=== PATIENT | female | born 1980 | race Caucasian/White ===

== ENCOUNTER → 2017-06-21 | Outpatient (CLI) | payer BC ==
--- NOTE | 2017-06-21 12:07 | MR ---
EXAMINATION TYPE: MR brain wo/w con DATE OF EXAM: 06/21/2017 COMPARISON: NONE HISTORY: Pseudopapilledema of optic disc TECHNIQUE: Multiplanar, multisequence images of the brain and brainstem is performed without and with IV contras t, utilizing 20 mL intravenous MultiHance . FINDINGS: There is no cerebellar tonsillar ectopia or downsloping of the right partially empty sella is seen an d fluid collection along the optic nerves are noted. There is no flattening of the sclera or tortuosi ty of the optic nerves. There is no bulging of the papilla into the globes. No enhancement of the pre liminary intra-articular optic nerves. Diffusion weighted images demonstrate no evidence of a recent infarct or other diffusion abnormality. There is no extra-axial fluid collection. Multiple foci of T2/FLAIR hyperintensity, which are nonen hancing, are seen within the subcortical white matter of the frontal lobes, parietal lobes, and left occipital lobe with the largest in the left frontal lobe measuring 9 mm x 4 mm. The ventricular syste m and cisternal spaces are normal in size and appearance. The brain volume is age appropriate. Midline structures demonstrate normal morphology. The craniocervical junction appears within normal limits. Post contrast images demonstrate no abnormal enhancement. The dural venous sinuses appear pa tent. The visualized sinuses are clear and the globes are intact. IMPRESSION: 1. Few nonspecific findings of potential increased intracranial pressure including fluid along the op tic nerves and partially empty sella turcica. No specific findings to suggest pseudotumor cerebri. 2. Multiple foci of T2/FLAIR hyperintensity in the subcortical white matter. Although these may be se en in microangiopathy, given the patient's age other etiologies such as demyelinating disease, vascul itides, and migraines should be considered.
== END | disposition home or self-care (01) ==
LOC: RADMRIMAIN 10:26
PROVIDERS: ATTEND Ophthalmology
DX: G93.2 Benign intracranial hypertension (principal); G43.909 Migraine, unspecified, not intractable, without status migrainosus; G37.9 Demyelinating disease of central nervous system, unspecified; I67.7 Cerebral arteritis, not elsewhere classified; H47.339 Pseudopapilledema of optic disc, unspecified eye
CPT/HCPCS: 70553; A9577

== ENCOUNTER → 2018-05-16 | Outpatient (CLI) | payer BC ==
--- NOTE | 2018-05-16 20:52 | CT ---
EXAMINATION TYPE: CT abdomen pelvis wo con DATE OF EXAM: 05/16/2018 HISTORY: Left flank pain. Kidney stones per order. CT DLP: 819 mGycm. Automated Exposure Control for Dose Reduction was Utilized. TECHNIQUE: CT scan of the abdomen and pelvis is performed without oral or IV contrast. COMPARISON: CT abdomen and pelvis September 10, 2016 and older studies FINDINGS: Within the limitations of a non-contrast study, the following observations are made. LUNG BASES: No significant abnormality is appreciated. LIVER/GB: Liver is markedly low dense consistent with fatty infiltration similar in appearance to dawood or. Cholecystectomy clips are redemonstrated. PANCREAS: No significant abnormality is seen. SPLEEN: There is 7 mm splenule anterior to spleen axial image 46 ADRENALS: No significant abnormality is seen. KIDNEYS: Suspect 1 to 2 mm calculus medially upper to midpole level right kidney coronal image 70 and axial image 58 not clearly seen on prior. There is stable 3 mm calculus upper pole level left kidney axial image 54. No hydronephrosis or obstructing renal calculi are seen bilaterally. No intraluminal calculi are seen in poorly distended bladder. BOWEL: Debris filled stomach suggests recent meal ingestion. There is no suspicious small or large shannon wel dilatation. Appendix is surgically absent. Small duodenal diverticulum along medial aspect second portion coronal image 50 is stable. GENITAL ORGANS: Anteverted slightly prominent uterus may reflect underlying fibroids unchanged from p rior LYMPH NODES: No greater than 1cm abdominal or pelvic lymph nodes are appreciated. OSSEOUS STRUCTURES: No significant abnormality is seen. OTHER: There is now soft tissue or scar tissue at level of prior small fat-containing umbilical herni a. IMPRESSION: 1. Stable 3 mm nonobstructing calculus upper pole of the left kidney. New single 1 to 2 mm calculus r ight kidney. No hydronephrosis or obstructing renal calculi are evident currently.
== END | disposition home or self-care (01) ==
LOC: RADCTMAIN 17:31
PROVIDERS: ATTEND Internal Medicine
DX: N20.0 Calculus of kidney (principal)
CPT/HCPCS: 74176

== ENCOUNTER → 2018-05-19 | Outpatient (CLI) | payer BC ==
--- NOTE | 2018-05-19 11:21 | XR ---
EXAMINATION TYPE: XR KUB DATE OF EXAM: 05/19/2018 10:52 AM CLINICAL HISTORY: History of left-sided nephrolithiasis. TECHNIQUE: Single supine KUB image of the abdomen is obtained. COMPARISON: CT abdomen pelvis dated 05/16/2018. FINDINGS: The previously seen 3 mm left renal calculus is not visualized, likely due to overlying bow el gas rather than interval passage. Punctate 1 to 2 mm right midpole renal calculus is present. Scat tered gas is seen in nondilated small bowel loops. Gas and fecal material is seen in nondilated colon . Cholecystectomy clips are noted. The lung bases are clear and the osseous structures are intact. Mi ld degenerative changes of the femoral acetabular joints are seen. IMPRESSION: 1. 3 mm left renal calculus is not visualized and favored. The obscured by overlying bowel gas rather than passed in the interim. 2. 1 to 2 mm right renal calculus is present overlying the renal shadow.
== END | disposition home or self-care (01) ==
LOC: RADXRMAIN 10:36
PROVIDERS: ATTEND Urology
DX: N20.0 Calculus of kidney (principal)
CPT/HCPCS: 74018

== ENCOUNTER → 2018-05-23 | Outpatient (CLI) | payer BC ==
[2018-05-23 09:49] LABS: HCT 41.6 % (34.0-46.0); MCH 29.6 pg (25.0-35.0); MCHC 33.7 g/dL (31.0-37.0); MCV 87.8 fL (80.0-100.0); Mean Platelet Volume 6.5; Platelet Count 269 k/uL (150-450); RBC 4.73 m/uL (3.80-5.40); RDW 13.7 % (11.5-15.5); WBC 6.4 k/uL (3.8-10.6)
[2018-05-23 10:01] LABS: ALT 131 U/L (9-52); AST 74 U/L (14-36); Albumin 4.4 g/dL (3.5-5.0); Alkaline Phosphatase 115 U/L (38-126); Anion Gap 8 mmol/L; Blood Urea Nitrogen 14 mg/dL (7-17); Calcium 9.7 mg/dL (8.4-10.2); Carbon Dioxide 24 mmol/L (22-30); Chloride 110 mmol/L (98-107); Cholesterol 218 mg/dL (<200); Glucose 144 mg/dL (74-99); HDL Cholesterol 34 mg/dL (40-60); LDL Cholesterol,Calculated 108 mg/dL (0-99); Potassium 4.3 mmol/L (3.5-5.1); Sodium 142 mmol/L (137-145); Total Bilirubin 0.3 mg/dL (0.2-1.3); Total Protein 7.3 g/dL (6.3-8.2); Triglycerides 381 mg/dL (<150)
[2018-05-23 10:17] LABS: T4, Free (Free Thyroxine) 1.07 ng/dL (0.78-2.19)
== END | disposition home or self-care (01) ==
LOC: LABWHC1 09:25
PROVIDERS: ATTEND Internal Medicine
DX: I10 Essential (primary) hypertension (principal)
CPT/HCPCS: 36415; 80053; 80061; 84439; 84443; 85027

== ENCOUNTER → 2018-09-12 | Outpatient (CLI) | payer BC ==
--- NOTE | 2018-09-12 09:05 | US ---
EXAMINATION TYPE: US abdomen complete DATE OF EXAM: 09/12/2018 COMPARISON: CT 09/10/2016, ultrasound 02/21/2015 CLINICAL HISTORY: K76.0 Fatty change of liver. EXAM MEASUREMENTS: Liver Length: 19.0 cm Gallbladder Wall: Surgically absent CBD: 0.6 cm Spleen: 11.6 cm Right Kidney: 10.2 x 4.7 x 6.4 cm Left Kidney: 10.9 x 6.6 cm Previous renal stones on CT are not identified currently. Pancreas: Tail obscured by overlying bowel gas Liver: Increased attenuation, decreased visualization of vessels suggestive of fatty infiltrate . L iver is enlarged. Gallbladder: Surgically absent Evidence for sonographic Starks's sign: no CBD: wnl Spleen: wnl Right Kidney: No hydronephrosis or masses seen Left Kidney: No hydronephrosis or masses seen Upper IVC: Obscured by overlying bowel gas Abd Aorta: Obscured by overlying bowel gas IMPRESSION: 1. Mild fatty infiltration of liver. 2. Hepatomegaly
== END | disposition home or self-care (01) ==
LOC: RADUSWWP 07:06
PROVIDERS: ATTEND Internal Medicine
DX: K76.0 Fatty (change of) liver, not elsewhere classified (principal)
CPT/HCPCS: 76700

== ENCOUNTER → 2018-10-29 | Outpatient (CLI) | payer BC ==
--- NOTE | 2018-10-30 14:49 | MM ---
Reason for exam: screening (asymptomatic). Last mammogram was performed 6 years and 8 months ago. Physical Findings: A clinical breast exam by your physician is recommended on an annual basis and results should be correlated with mammographic findings. MG 3D Screening Mammo W/Cad Bilateral CC and MLO view(s) were taken. Prior study comparison: February 28, 2012, CAD bilateral diagnostic mammogram. There are scattered fibroglandular densities. There is no discrete abnormality. No significant changes when compared with prior studies. ASSESSMENT: Negative, BI-RAD 1 RECOMMENDATION: Routine screening mammogram of both breasts in 1 year.
== END | disposition home or self-care (01) ==
LOC: RADMAMWWP 10:22
PROVIDERS: ATTEND Internal Medicine
DX: Z12.31 Encounter for screening mammogram for malignant neoplasm of breast (principal)
CPT/HCPCS: 77063; 77067

== ENCOUNTER → 2019-08-03 | Outpatient (CLI) | payer BC, OTHER ==
[2019-08-04 01:42] LABS: Iron Saturation 16.06 (12.00-45.00)
[2019-08-04 01:50] LABS: Ferritin 35.6 ng/mL (10.0-291.0)
[2019-08-04 02:09] LABS: Gliadin AB IgA, Deaminated NEGATIVE (NEGATIVE); Gliadin AB IgA, Unit <0.2 U/mL; Gliadin AB IgG, Deaminated NEGATIVE (NEGATIVE)
[2019-08-04 02:19] LABS: African American GFR (CKD) 132.1 (60.0-200.0); Albumin 4.5 g/dL (3.80-4.90); Albumin/Globulin Ratio 2.37 (1.60-3.17); Anion Gap 7.5 mmol/L (4.00-12.00); Calcium 9.7 mg/dL (8.7-10.3); Carbon Dioxide 31.5 mmol/L (21.6-31.8); Globulin 1.9 g/dL (1.6-3.3); Potassium 4.1 mmol/L (3.5-5.5); Total Bilirubin 0.3 mg/dL (0.3-1.2); Total Protein 6.4 g/dL (6.2-8.2)
[2019-08-04 03:28] LABS: Hepatitis A Antibody IgM Non-Reactive (Non-Reactive); Hepatitis B Core IgM Non-Reactive (Non-Reactive); Hepatitis B Surface Antigen Non-Reactive (Non-Reactive); Hepatitis C IgG Antibody Non-Reactive (Non-Reactive)
[2019-08-04 04:00] LABS: Protein, Total 6.4 g/dL (6.2-8.2)
[2019-08-04 10:49] LABS: Liver/Kidney Microsome Antibod 1.1 UNITS (<=20)
[2019-08-04 13:23] LABS: Albumin 3.86 g/dL (3.80-4.90); Gamma Globulin 0.77 g/dL (0.70-1.50)
[2019-08-04 14:42] LABS: ANA Pattern See Footnote; Ceruloplasmin 19.3 mg/dL (20.0-60.0)
== END | disposition home or self-care (01) ==
LOC: LABWHC1 16:30
PROVIDERS: ATTEND Internal Medicine
DX: R74.8 Abnormal levels of other serum enzymes (principal)
CPT/HCPCS: 36415; 80053; 80074; 82103; 82390; 82728; 83516; 83540; 83550; 84165; 86038; 86039; 86376

== ENCOUNTER → 2023-01-28 | Outpatient (CLI) | payer BC, OTHER ==
--- NOTE | 2023-01-28 10:31 | MM ---
Reason for Exam: Screening (asymptomatic). Last mammogram was performed 4 year(s) and 3 month(s) ago. Patient History: Menarche at age 9. First Full-Term at age 22. Risk Values: Nilda 5 year model risk: 0.8%. NCI Lifetime model risk: 9.5%. Prior Study Comparison: 02/28/2012 Bilateral Diagnostic Mammogram, [facility]. 10/29/2018 Bilateral Screening Mammogram, [facility]. Tissue Density: There are scattered fibroglandular densities. Findings: Analyzed By CAD. There is no suspicious group of microcalcifications or new suspicious mass in either breast. Overall Assessment: Negative, BI-RAD 1 Management: Screening Mammogram of both breasts in 1 year. A clinical breast exam by your physician is recommended on an annual basis and results should be correlated with mammographic findings. Electronically signed and approved by: Husam Sellers M.D.
== END | disposition home or self-care (01) ==
LOC: RADMAMWWP 09:23
PROVIDERS: ATTEND Internal Medicine
DX: Z12.31 Encounter for screening mammogram for malignant neoplasm of breast (principal)
CPT/HCPCS: 77063; 77067

== ENCOUNTER 2023-02-10 18:30 | Emergency (ER) | payer BC, OTHER ==
[2023-02-10] MEDS ORDERED: SODIUM CHLORIDE 0.9% 1,000 ML IV STA (18:37)
[2023-02-10] MEDS ORDERED: ONDANSETRON 4 MG/2 ML VIAL IVP STA (18:48)
[2023-02-10] MEDS ORDERED: KETOROLAC 15 MG/ML 1 ML VIAL IVP STA (18:49)
[2023-02-10 19:10] LABS: Basophils # (A) 0.1 k/uL (0-0.2); Basophils % (A) 1 %; Eosinophils # (A) 0.1 k/uL (0-0.7); Eosinophils % (A) 1 %; HCT 45.9 % (34.0-46.0); HGB 15.7 gm/dL (11.4-16.0); Lymphocytes # (A) 3.4 k/uL (1.0-4.8); Lymphocytes % (A) 28 %; MCH 29.2 pg (25.0-35.0); MCHC 34.2 g/dL (31.0-37.0); MCV 85.4 fL (80.0-100.0); Mean Platelet Volume 7.1; Monocytes # (A) 0.6 k/uL (0-1.0); Monocytes % (A) 5 %; Neutrophils # (A) 7.9 k/uL (1.3-7.7); Neutrophils % (A) 65 %; Platelet Count 261 k/uL (150-450); RBC 5.38 m/uL (3.80-5.40); RDW 13.7 % (11.5-15.5); WBC 12.2 k/uL (3.8-10.6)
[2023-02-10 19:34] LABS: Partial Thromboplastin Time 22.3 sec (22.0-30.0); Prothrombin Time 10.9 sec (9.0-12.0)
[2023-02-10 19:52] LABS: ALT 106 U/L (4-34); AST 56 U/L (14-36); African American GFR (CKD) >90 (>60 ml/min/1.73 sqM); Albumin 4.9 g/dL (3.5-5.0); Alkaline Phosphatase 95 U/L (38-126); Anion Gap 12 mmol/L; Blood Urea Nitrogen 19 mg/dL (7-17); Calcium 10.3 mg/dL (8.4-10.2); Carbon Dioxide 32 mmol/L (22-30); Chloride 98 mmol/L (98-107); Glucose 113 mg/dL (74-99); Non-African American GFR(CKD) >90 (>60 ml/min/1.73 sqM); Potassium 4.4 mmol/L (3.5-5.1); Sodium 142 mmol/L (137-145); Total Bilirubin 0.5 mg/dL (0.2-1.3); Total Protein 7.9 g/dL (6.3-8.2)
--- NOTE | 2023-02-10 20:00 | CT ---
EXAMINATION TYPE: CT angio abdomen pelvis CT DLP: 2285.6 mGycm, Automated exposure control for dose reduction was used. DATE OF EXAM: 02/10/2023 7:38 PM COMPARISON: 05/16/2018 CLINICAL INDICATION:Female, 42 years old with history of abd pain rectal bleeding, hx of ischemic col itis;, GI bleeding, Hx ischemic bowel. TECHNIQUE: Multiple thin slice sub-millimeter images were obtained through the abdomen and pelvis, af ter administration of contrast. CT Contrast: Contrast used:100 mL of Isovue 370 with IV Contrast, Oral contrast used: without Oral Contrast None FINDINGS: CTA Abdomen and pelvis: The abdominal aorta does not demonstrate aneurysmal dilatation. The origins of the superior mesenteric artery, renal arteries, inferior mesenteric artery, and celiac axis are pa tent. The iliac vessels are normal in morphology LOWER CHEST: No evidence of focal consolidation, pneumothorax or pleural effusion. The heart is mildl y enlarged for size. LIVER: Diffusely hypoattenuating parenchyma. GALLBLADDER AND BILE DUCTS: The gallbladder is surgically absent. PANCREAS: Unremarkable. SPLEEN: Small splenule is present. ADRENAL GLANDS: Unremarkable. KIDNEYS AND URETERS: Nonobstructing bilateral renal millimeter renal calculi. No evidence of obstruct brad uropathy. The ureters are grossly unremarkable. PELVIS BLADDER: Unremarkable REPRODUCTIVE: Hypodense left labia probable cyst measuring 8 mm. ABDOMEN & PELVIS STOMACH AND BOWEL: No evidence of bowel obstruction. No evidence for bowel wall thickening or pneumat osis. No organizing fluid collection identified. Mild inflammation changes suggested along the left a bdomen along the descending colon. Second portion duodenal diverticulum with foci of gas present. PERITONEUM: No evidence of pneumoperitoneum or free fluid. MUSCULOSKELETAL: No acute osseous abnormalities LYMPH NODES: No gross evidence for lymphadenopathy. SOFT TISSUE/ABDOMINAL WALL: Unremarkable IMPRESSION 1. Mild inflammation changes along the descending colon without definite evidence for gastrointestin al hemorrhage. 2. No evidence for pneumatosis or evidence for bowel obstruction. No free air or organizing fluid co llection within the abdomen or pelvis. 3. No evidence of vascular occlusion. 4. Hepatic steatosis. 5. Bilateral nonobstructing renal calculi measuring 3 mm.
[2023-02-10] MEDS ORDERED: AMOXIC-POT CLAV 875-125MG 1 EACH TAB PO STA (20:25)
[2023-02-10] MEDS ORDERED: METOCLOPRAMIDE 5 MG/ML 2 ML VIAL IVP STA (20:28)
[2023-02-10] MEDS ORDERED: MORPHINE SULFATE 4 MG/ML SYRINGE IVP STA (20:31)
[2023-02-10] MEDS ORDERED: ONDANSETRON 4 MG ODT STARTER PACK 2 TAB BTL PO STA (20:31)
[2023-02-10 20:41] VITALS: BP 149/82; PULSE 89; RESP 18; TEMP 98.1
--- NOTE | 2023-02-10 21:46 | ED ---
GI Bleed HPI - General Chief complaint: GI Bleed Stated complaint: poss GI bleed Time Seen by Provider: 02/10/23 18:37 Source: patient Mode of arrival: ambulatory Limitations: no limitations - History of Present Illness Initial comments: Patient is a 42 year old female who presents to the emergency department for GI bleed. Patient reports lower abdominal pain that started today, left more than right. Tonight she had 1 episode of bloody stool. She did show me a picture revealing diarrhea with bright red blood and a few dime sized clots. She does not take blood thinners. Patient has history of GI bleed secondary to ischemic colitis which she states was due to a diet medication. Patient no longer takes it but started Ozempic January 02. She reports nausea without vomiting. No fever, chills, back pain, burning with urination, blood in urine. No chest pain or SOB. - Related Data Home Medications Medication Instructions Recorded Confirmed Lisinopril/Hydrochlorothiazide 1 tab PO DAILY 09/10/16 02/10/23 [Lisinopril-Hctz 10-12.5 mg Tab] Omeprazole [PriLOSEC] 20 mg PO DAILY 09/10/16 02/10/23 Cyanocobalamin [Vitamin B-12] 500 mcg PO DAILY 02/10/23 02/10/23 Ivabradine HCl [Corlanor] 5 mg PO BID 02/10/23 02/10/23 Rosuvastatin Calcium 5 mg PO HS 02/10/23 02/10/23 Semaglutide [Ozempic] 0.25 mg SQ WE 02/10/23 02/10/23 metFORMIN HCL [Glucophage] 1,000 mg PO BID 02/10/23 02/10/23 Previous Rx's Medication Instructions Recorded Amoxic-Pot Clav 875-125Mg 1 tab PO BID 10 Days #20 tab 02/10/23 [Augmentin 875-125] Ibuprofen [Motrin] 800 mg PO Q8HR PRN #30 tab 02/10/23 Ondansetron Odt [Zofran Odt] 4 mg PO Q8HR PRN #10 tab 02/10/23 Allergies Allergy/AdvReac Type Severity Reaction Status Date / Time codeine AdvReac Vomiting Verified 02/10/23 19:50 Review of Systems ROS Statement: Those systems with pertinent positive or pertinent negative responses have been documented in the HPI. ROS Other: All systems not noted in ROS Statement are negative. Past Medical History Past Medical History: Hypertension Additional Past Medical History / Comment(s): kidney stones, ischemic bowel History of Any Multi-Drug Resistant Organisms: None Reported Past Surgical History: Appendectomy, Section, Cholecystectomy, Uterine Ablation Additional Past Surgical History / Comment(s): COLONOSCOPY W/ BX-NEG FOR CA, X3 C-SECTIONS, LITHOTTRIPSY Past Anesthesia/Blood Transfusion Reactions: No Reported Reaction Past Psychological History: No Psychological Hx Reported Past Alcohol Use History: None Reported Past Drug Use History: None Reported - Past Family History Father Family Medical History: CVA/TIA, Hypertension Additional Family Medical History / Comment(s): DEPRESSION, KIDNEY STONES Mother Family Medical History: Diabetes Mellitus, Hypertension General Exam Limitations: no limitations General appearance: alert, in no apparent distress Head exam: Present: atraumatic, normocephalic, normal inspection Eye exam: Present: normal appearance, PERRL, EOMI. Absent: scleral icterus, conjunctival injection, periorbital swelling Respiratory exam: Present: normal lung sounds bilaterally. Absent: respiratory distress, wheezes, rales, rhonchi, stridor Cardiovascular Exam: Present: regular rate, normal rhythm, normal heart sounds. Absent: systolic murmur, diastolic murmur, rubs, gallop, clicks GI/Abdominal exam: Present: soft, normal bowel sounds. Absent: distended, tenderness, guarding, rebound, rigid Rectal exam: Present: normal inspection, other (no active bleeding). Absent: b lack stool Course Vital Signs 02/10/23 02/10/23 18:31 20:40 Temperature 97.9 F 98.1 F Pulse Rate 114 H 89 Respiratory 16 18 Rate Blood Pressure 177/109 149/82 O2 Sat by Pulse 98 96 Oximetry Medical Decision Making - Medical Decision Making Was pt. sent in by a medical professional or institution (, PA, RACK PRODUCTION WORKER, urgent care, hospital, or fpc...) When possible be specific @ -[No] Did you speak to anyone other than the patient for history (EMS, parent, family, police, friend...)? What history was obtained from this source @ -[No] Did you review nursing and triage notes (agree or disagree)? Why? @ -[I reviewed and agree with nursing and triage notes] Were old charts reviewed (outside hosp., previous admission, EMS record, old EKG, old radiological studies, urgent care reports/EKG's, fpc records)? Report findings @ -[No old charts were reviewed] Differential Diagnosis (chest pain, altered mental status, abdominal pain women, abdominal pain men, vaginal bleeding, weakness, fever, dyspnea, syncope, headache, dizziness, GI bleed, back pain, seizure, CVA, palpatations, mental health)? @ -Differential Abdominal Pain Women: Appendicitis, Cholecystitis, diverticulosis, ischemic bowel, pancreatitis, hepatitis, UTI, gastroenteritis, AAA, incarcerated hernia, bowel obstruction, constipation, inflammatory bowel, hepatitis, peptic ulcer disease, splenic infarction, perforated viscus, vulvitis, ovarian torsion, PID, kidney stone, placenta abruption, this is not meant to be an all-inclusive list EKG interpreted by me (3pts min.). @ -[As above] X-rays interpreted by me (1pt min.). @ -[None done] CT interpreted by me (1pt min.). @ -[None done] U/S interpreted by me (1pt. min.). @ -[None done] What testing was considered but not performed or refused? (CT, X-rays, U/S, labs)? Why? @ -[None] What meds were considered but not given or refused? Why? @ -[None] Did you discuss the management of the patient with other professionals (professionals i.e. , PA, RACK PRODUCTION WORKER, lab, RT, psych nurse, social insurance administrator, test center administrator, teacher, freedom of information officer, case technician)? Give summary @ -[No] Was smoking cessation discussed for >3mins.? @ -[No] Was critical care preformed (if so, how long)? @ -[No] Were there social determinants of health that impacted care today? How? (Homelessness, low income, unemployed, alcoholism, drug addiction, transportation, low edu. Level, literacy, decrease access to med. care, longterm, rehab)? @ -[No] Was there de-escalation of care discussed even if they declined (Discuss DNR or withdrawal of care, Hospice)? DNR status @ -[No] What co-morbidities impacted this encounter? (DM, HTN, Smoking, COPD, CAD, Cancer, CVA, ARF, Chemo, Hep., AIDS, mental health diagnosis, sleep apnea, morbid obesity)? @ -[None] Was patient admitted / discharged? Hospital course, mention meds given and route, prescriptions, significant lab abnormalities, going to OR and other pertinent info. @ -Patient presenting with abdominal pain and hematochezia, No fever, no vomiting. No active bleeding visualized on exam. Laboratory studies obtained. Hemoglobin is normal. There is mild leukocytosis at 12.2. Lactic is elevated at 2.7. CT angio abdomen obtained which shows mild colitis of the descending colon without definite evidence for gastrointestinal hemorrage. There is no evidence of va scular occlusion. Patient given large fluid bolus, pain and nausea medication. She did not have an y further episodes of bloody stool. Results discussed with patient. She reports normal colonoscopy 5 years ago. We discussed the possibility of inflammatory vs. infectious etiology. Patient will be treated with Augmentin. She will follow up with her GI specialists. Strict return parameters discussed. Undiagnosed new problem with uncertain prognosis? @ -[No] Drug Therapy requiring intensive monitoring for toxicity (Heparin, Nitro, Insulin, Cardizem)? @ -[No] Were any procedures done? @ -[No] Diagnosis/symptom? @ -colitis Acute, or Chronic, or Acute on Chronic? @ -acute Uncomplicated (without systemic symptoms) or Complicated (systemic symptoms)? @ -uncomplicated Side effects of treatment? @ -[No] Exacerbation, Progression, or Severe Exacerbation? @ -[No] Poses a threat to life or bodily function? How? (Chest pain, USA, MT, pneumonia, PE, COPD, DKA, ARF, appy, cholecystitis, CVA, Diverticulitis, Homicidal, Suicidal, threat to staff... and all critical care pts) @ -[No] Dr. Coffman is my attending - Lab Data Result diagrams: 02/10/23 18:40 02/10/23 18:51 Lab Results 02/10/23 02/10/23 02/10/23 Range/Units 18:40 18:51 18:51 WBC 12.2 H (3.8-10.6) k/uL RBC 5.38 (3.80-5.40) m/uL Hgb 15.7 (11.4-16.0) gm/dL Hct 45.9 (34.0-46.0) % MCV 85.4 (80.0-100.0) fL MCH 29.2 (25.0-35.0) pg MCHC 34.2 (31.0-37.0) g/dL RDW 13.7 (11.5-15.5) % Plt Count 261 (150-450) k/uL MPV 7.1 Neutrophils % 65 % Lymphocytes % 28 % Monocytes % 5 % Eosinophils % 1 % Basophils % 1 % Neutrophils # 7.9 H (1.3-7.7) k/uL Lymphocytes # 3.4 (1.0-4.8) k/uL Monocytes # 0.6 (0-1.0) k/uL Eosinophils # 0.1 (0-0.7) k/uL Basophils # 0.1 (0-0.2) k/uL PT 10.9 (9.0-12.0) sec INR 1.0 (<1.2) APTT 22.3 (22.0-30.0) sec Sodium 142 (137-145) mmol/L Potassium 4.4 (3.5-5.1) mmol/L Chloride 98 (98-107) mmol/L Carbon Dioxide 32 H (22-30) mmol/L Anion Gap 12 mmol/L BUN 19 H (7-17) mg/dL Creatinine 0.78 (0.52-1.04) mg/dL Est GFR (CKD-EPI)AfAm >90 (>60 ml/min/1.73 sqM) Est GFR (CKD-EPI)NonAf >90 (>60 ml/min/1.73 sqM) Glucose 113 H (74-99) mg/dL Plasma Lactic Acid David (0.7-2.0) mmol/L Calcium 10.3 H (8.4-10.2) mg/dL Total Bilirubin 0.5 (0.2-1.3) mg/dL AST 56 H (14-36) U/L ALT 106 H (4-34) U/L Alkaline Phosphatase 95 (38-126) U/L Total Protein 7.9 (6.3-8.2) g/dL Albumin 4.9 (3.5-5.0) g/dL Blood Type Blood Type Recheck Bld Type Recheck Status Antibody Screen Spec Expiration Date 02/10/23 02/10/23 Range/Units 18:51 18:52 WBC (3.8-10.6) k/uL RBC (3.80-5.40) m/uL Hgb (11.4-16.0) gm/dL Hct (34.0-46.0) % MCV (80.0-100.0) fL MCH (25.0-35.0) pg MCHC (31.0-37.0) g/dL RDW (11.5-15.5) % Plt Count (150-450) k/uL MPV Neutrophils % % Lymphocytes % % Monocytes % % Eosinophils % % Basophils % % Neutrophils # (1.3-7.7) k/uL Lymphocytes # (1.0-4.8) k/uL Monocytes # (0-1.0) k/uL Eosinophils # (0-0.7) k/uL Basophils # (0-0.2) k/uL PT (9.0-12.0) sec INR (<1.2) APTT (22.0-30.0) sec Sodium (137-145) mmol/L Potassium (3.5-5.1) mmol/L Chloride (98-107) mmol/L Carbon Dioxide (22-30) mmol/L Anion Gap mmol/L BUN (7-17) mg/dL Creatinine (0.52-1.04) mg/dL Est GFR (CKD-EPI)AfAm (>60 ml/min/1.73 sqM) Est GFR (CKD-EPI)NonAf (>60 ml/min/1.73 sqM) Glucose (74-99) mg/dL Plasma Lactic Acid David 2.7 H* (0.7-2.0) mmol/L Calcium (8.4-10.2) mg/dL Total Bilirubin (0.2-1.3) mg/dL AST (14-36) U/L ALT (4-34) U/L Alkaline Phosphatase (38-126) U/L Total Protein (6.3-8.2) g/dL Albumin (3.5-5.0) g/dL Blood Type O Positive Blood Type Recheck O Pos Bld Type Recheck Status No Antibody Screen NEGATIVE Spec Expiration Date 02/13/2023 - 2350 Disposition Clinical Impression: GI bleed, Colitis Disposition: HOME SELF-CARE Condition: Good Instructions (If sedation given, give patient instructions): Gastrointestinal Bleeding (ED), Colitis (ED) Additional Instructions: Take medication as directed. Follow up with GI specialist in 1-2 days. Return to the ED if you experience new, worsening, or concerning symptoms Prescriptions: Amoxic-Pot Clav 875-125Mg [Augmentin 875-125] 1 tab PO BID 10 Days #20 tab Ibuprofen [Motrin] 800 mg PO Q8HR PRN #30 tab PRN Reason: Pain Ondansetron Odt [Zofran Odt] 4 mg PO Q8HR PRN #10 tab PRN Reason: Nausea Is patient prescribed a controlled substance at d/c from ED?: No Referrals: Lexy Julian MD [Primary Care Provider] - 1-2 days
== END 2023-02-10 20:54 | disposition home or self-care (01) ==
LOC: EC 18:30
DX: K92.2 Gastrointestinal hemorrhage, unspecified (principal); K52.9 Noninfective gastroenteritis and colitis, unspecified; I10 Essential (primary) hypertension; Z88.8 Allergy status to other drugs, medicaments and biological substances; Z79.899 Other long term (current) drug therapy
CPT/HCPCS: 36415; 86900; 86901; 80053; 83605; 85025; 85610; 85730; 86850; 74174; 99285; 96374; 96375 ×3; 96361; J2270; J2765; J2405; J1885; S0119; Q9967

== ENCOUNTER 2023-04-23 05:52 | Day surgery (SDC) | payer BC, OTHER ==
[~2023-04-23 05:52] MED LIST: LACTATED RINGERS 1,000 ML IV SCH
[2023-04-23 06:33] VITALS: RESP 16; TEMP 97.8
[2023-04-23 06:43] LABS: Glucose,Whole Blood 97 mg/dL (70-110)
[2023-04-23] MEDS ORDERED: LIDOCAINE 2% INJ 20 MG/ML (2 ML VIAL) ONE (07:04)
[2023-04-23] MEDS ORDERED: PROPOFOL 10 MG/ML 20 ML VIAL IV ONE (07:04)
--- NOTE | 2023-04-23 07:28 | P.PCN ---
Date of Procedure: 04/23/23 Procedure(s) Performed: Brief history: Patient is a pleasant 41-year-old white female scheduled for an elective upper endoscopy as well as colonoscopy as a part of evaluation of long-standing history of GERD and recent episode of acute colitis 2 months ago at which time she had abdominal pain and bloody diarrhea lasting for 1 day. She went to the ER and had a computed tomography scan done that showed thickening of the left colon. She was discharged home on antibiotics and her symptoms resolved in 2 da ys. She had similar episode 7 years ago and was diagnosed with ischemic colitis. Her last colonoscopy was 6 months ago Procedure performed: Esophagogastroduodenoscopy with biopsy Colonoscopy Preoperative diagnosis: GERD Recent episode of acute colitis Anesthesia: MAC Procedure: After informed consent was obtained from the patient was brought into the endoscopy unit and IV sedation was administered by anesthesia under continuous monitoring. Initially upper endoscopy was done. The Olympus GF 160 video endoscope was inserted inserted into the mouth and esophagus intubated without any difficulty and was gradually advanced into the stomach and duodenum and carefully examined. The bulb and second part of the duodenum appeared normal. The scope was then withdrawn into the stomach adequately insufflated with air and upon careful examination the antrum and mild gastritis and biopsies were done from this area. There were multiple gastric polyps noted in the body the stomach was biopsied. Rest of the body, cardia and fundus appeared normal. The scope was then withdrawn into the esophagus. The GE junction was located at 40 cm to the incisors. It appeared regular with no erythema erosions or ulcerations. Rest of the esophagus appeared normal. Patient tolerated the procedure well. At this time the patient continued to remain sedation. Initial digital rectal examination was normal. Olympus CF 160 video colonoscope was then inserted into the rectum and gradually advanced to the cecum without any difficulty. Careful examination was performed as the scope was gradually being withdrawn. The prep was excellent. The cecum, ascending colon, transverse colon, descending colon, sigmoid colon and rectum appeared normal. Retroflexion was performed in the rectum and no lesions were noted. Patient tolerated the procedure well. Impression: 1. Upper endoscopy revealed mild antral gastritis and multiple gastric polyps 2. Colonoscopy was within normal limits with no evidence of colorectal neoplasia Recommendations: Findings of this examination were discussed with the patient as well as her family. She was advised to follow with the biopsy results. Recommend repeat screening colonoscopy in 10 years.
[2023-04-23 07:50] VITALS: BP 143/78; PULSE 77
== END 2023-04-23 08:15 | disposition home or self-care (01) ==
LOC: ORWHC2ENDO 05:52
PROVIDERS: ATTEND Internal Medicine Gastroenterology
DX: K29.50 Unspecified chronic gastritis without bleeding (principal); K31.7 Polyp of stomach and duodenum; K52.9 Noninfective gastroenteritis and colitis, unspecified; I10 Essential (primary) hypertension; E78.5 Hyperlipidemia, unspecified; E11.9 Type 2 diabetes mellitus without complications; N28.89 Other specified disorders of kidney and ureter; Z87.442 Personal history of urinary calculi; G90.A Postural orthostatic tachycardia syndrome [POTS]; Z79.1 Long term (current) use of non-steroidal anti-inflammatories (NSAID); Z79.84 Long term (current) use of oral hypoglycemic drugs; Z79.899 Other long term (current) drug therapy; Z88.5 Allergy status to narcotic agent
CPT/HCPCS: 81025; 88305; 45378; 43239; J2704; J2001

== ENCOUNTER → 2023-06-25 | Outpatient (CLI) | payer OTHER ==
--- NOTE | 2023-06-25 17:22 | XR ---
EXAMINATION TYPE: XR lumbar spine 2 or 3V DATE OF EXAM: 06/25/2023 CLINICAL HISTORY: pain TECHNIQUE: Three views of the lumbar spine are submitted. COMPARISON: None. FINDINGS: There are 5 lumbar type vertebral bodies identified. The lumbar spine shows satisfactory alignment w ithout evidence of acute fracture or dislocation. Vertebral body heights are within normal limits. Disc spaces are within normal limits. The overlying soft tissue appears unremarkable. IMPRESSION: No acute fracture or dislocation is seen in the lumbar spine. ICD 10 NO FRACTURE, INITIAL EVALUATION
== END | disposition home or self-care (01) ==
LOC: RADXRMAIN 16:56
PROVIDERS: ATTEND Emergency Medicine
DX: S39.012A Strain of muscle, fascia and tendon of lower back, initial encounter (principal); X58.XXXA Exposure to other specified factors, initial encounter
CPT/HCPCS: 72100